=== PATIENT | female | born 1995 | race Caucasian/White ===

== ENCOUNTER 2023-02-17 10:40 | Emergency (ER) | payer BC ==
[~2023-02-17] VITALS: Ht 167.6 cm; Wt 77.3 kg
[2023-02-17 11:30] VITALS: BP 107/71; PULSE 66; RESP 18; TEMP 98.9; O2SAT 100
--- NOTE | 2023-02-17 12:53 | NUR ---
Went to d/c Pt. Pt refused to d/c. Pt states she did not have treatment, and that the MD has done nothing. CN and NORMAN aware.
--- NOTE | 2023-02-17 13:18 | NUR ---
Per [employer] technician, they could do other type of ultrasound but not the breast ultrasound at this hospital. Patient was told about this. Patient strongly advised to contact the [facility] tomorrow morning to set up appointment and to get the primary care provider order the breast ultrasound or mammogram whichever is appropriate. Patient verbalized understanding.
== END 2023-02-17 13:22 | disposition home or self-care (01) ==
LOC: ER 10:40
DX: N63.10 Unspecified lump in the right breast, unspecified quadrant (principal)
CPT/HCPCS: 99281